=== PATIENT | male | born 1945 | race Caucasian/White ===

== ENCOUNTER 2021-03-22 08:23 | Day surgery (SDC) | payer MEDICARE, BC ==
[~2021-03-22 08:23] MED LIST: Lactated Ringers 1,000 ML IV SCH; Lidocaine 1% 4 ML ONE; Lidocaine 1%/Sod Bicarbonate in NS 8.4% 1 ML Syringe IDERM PRN; Propofol 200 MG/20 ML SDV ONE; Sodium Chloride 0.9% 10 ML Syringe FLUSH PRN; fentaNYL 100 MCG/2 ML SDV ONE
--- NOTE | 2021-03-22 08:30 | PCM.PREANE ---
Preanesthetic Assessment - Procedure Proposed Procedure: EGD and Colonoscopy - Anesthesia/Transfusion/Family Hx Anesthesia History: Prior Anesthesia Without Reaction Family History of Anesthesia Reaction: No Transfusion History: No Prior Transfusion(s) - Review of Systems General: No Symptoms Pulmonary: No Symptoms (NIMO with CPAP/quit smoking: Quit in 1978, quit smokeless tobacco 1980/ETOH: rarely) Cardiovascular: No Symptoms (HTN, Cardiomyopathy, CAD, ICD placed in 2011, elevated lipids/?[place]) Gastrointestinal: No Symptoms (Hypertrophy of prostate) Neurological: No Symptoms Other: Reports: None (Chronic Kidnedy Disease), Diabetes (AM blood sugar:147 @ 0722), Thyroid Problems (Hypothyroid), Sinus Problem (Sinusitis) - Physical Assessment NPO Status Date: 03/21/21 NPO Status Time: 21:45 Vital Signs: HR: 63 Sat: 97% Temp: 97.6 B/P: 107/75 Resp: 20 Height: 1.73 m Weight: 104 kg ASA Class: 3 Mental Status: Alert & Oriented x3 Airway Class: Mallampati = 2 Dentition: Reports: Bridge (bottom/permanant) Thyro-Mental Finger Breadths: 3 Mouth Opening Finger Breadths: 3 ROM/Head Extension: Full Lungs: Clear to Auscultation, Normal Respiratory Effort Cardiovascular: Regular Rate, Regular Rhythm, No Murmurs - Lab Values: All labs reviewed and noted and within acceptable ranges to proceed with scheduled procedure. - Imaging/EKG Impressions: EF: 30% EKG: Ventricular pacemaker: rate 74. - Allergies Allergies/Adverse Reactions: Allergies Allergy/AdvReac Type Severity Reaction Status Date / Time No Known Allergies Allergy Verified 03/21/21 13:51 - Anesthesia Plan Pre-Op Medication Ordered: Beta Gibson Beta Gibson: Metoprolol Med Last Dose Date: 03/22/21 Med Last Dose Time: 07:00 - Acknowledgements Anesthesia Type Planned: MAC Pt an Appropriate Candidate for the Planned Anesthesia: Yes Alternatives and Risks of Anesthesia Discussed w Pt/Guardian: Yes Pt/Guardian Understands and Agrees with Anesthesia Plan: Yes PreAnesthesia Questionnaire HEENT History: Reports: Impaired Vision, Sinusitis, Other (See Below) Other HEENT History: wears glasses, tonsillitis Cardiovascular History: Reports: CAD, High Cholesterol, Hypertension, Other (See Below) Other Cardiovascular History: coronary atherosclerosis, cardiomyopathies, high cholesterol Respiratory History: Reports: Sleep Apnea, Other (See Below) Other Respiratory History: uses cpap Gastrointestinal History: Reports: Other (See Below) Other Gastrointestinal History: umbilical hernia, puncture wound to abdomen, umbilical hernia Genitourinary History: Reports: BPH Other Genitourinary History: disorder of kidney, ureter 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 Hematologic History: Reports: Anemia Immunologic History: Reports: None Oncologic (Cancer) History: Reports: Prostate Dermatologic History: Reports: Other (See Below) Other Dermatologic History: onychia of toe - Past Surgical History Cardiovascular Surgical History: Reports: AICD Respiratory Surgical History: Reports: None Female Surgical History: Reports: None Male Surgical History: Reports: None Endocrine Surgical History: Reports: None Neurological Surgical History: Reports: None Musculoskeletal Surgical History: Reports: Knee Replacement Oncologic Surgical History: Reports: None Dermatological Surgical History: Reports: None - SUBSTANCE USE Tobacco Use Status *Q: Former Tobacco User Days Per Week of Alcohol Use: 1 Number of Drinks Per Day: 2 Total Drinks Per Week: 2 Recreational Drug Use History: No - HOME MEDS Home Medications: Home Meds Aspirin [[place] Aspirin EC] 81 mg PO DAILY 04/27/15 [History] Ezetimibe [Zetia] 10 mg PO QPM 04/27/15 [History] Metoprolol Succinate 50 mg PO DAILY 04/27/15 [History] Multivitamin [Multi-Vitamin Daily] 1 tab PO DAILY 04/27/15 [History] Simvastatin [Zocor] 80 mg PO QPM 04/27/15 [History] Spironolactone [Aldactone] 25 mg PO DAILY 04/27/15 [History] Finasteride [Proscar] 5 mg PO DAILY 03/21/21 [History] Levothyroxine 75 mcg PO DAILY 03/21/21 [History] Omeprazole Magnesium [Prilosec Otc] 20 mg PO DAILY 03/21/21 [History] Tamsulosin [Flomax] 0.4 mg PO BID 03/21/21 [History] metFORMIN [Glucophage] 500 mg PO BID 03/21/21 [History] - CURRENT (IN HOUSE) MEDS Current Meds: Current Medications Lactated Ringer's (Ringers, Lactated) 1,000 mls @ 125 mls/hr IV ASDIRECTED SAMANTHA Stop: 03/22/21 23:00 Lidocaine/Sodium Bicarbonate (Lidocaine 1%/Sod Bicarbonate In Ns 8.4% 1 Ml Syringe) 0.25 ml IDERM ONETIME PRN PRN Reason: Prior to IV Start Stop: 03/22/21 18:00 Sodium Chloride (Sodium Chloride 0.9% 10 Ml Syringe) 10 ml FLUSH ASDIRECTED PRN PRN Reason: Keep Vein Open Stop: 03/22/21 18:00 Discontinued Medications Fentanyl (Fentanyl 100 Mcg/2 Ml Sdv) Confirm Administered Dose 100 mcg .ROUTE .STK-MED ONE Stop: 03/22/21 07:31 Lidocaine HCl (Xylocaine-Mpf 1%) Confirm Administered Dose 4 mls @ as directed .ROUTE .STK-MED ONE Stop: 03/22/21 07:31 Propofol (Propofol 200 Mg/20 Ml Sdv) Confirm Administered Dose 200 mg .ROUTE .STK-MED ONE Stop: 03/22/21 07:31
[2021-03-22] MEDS ORDERED: ePHEDrine 50 MG/ML SDV ONE (09:14)
[2021-03-22] MEDS ORDERED: Propofol 200 MG/20 ML SDV ONE ×3 (09:15→10:56)
[2021-03-22] MEDS ORDERED: Lactated Ringers 1,000 ML ONE (10:10)
--- NOTE | 2021-03-22 11:19 | PCM.OPNOTE ---
- General Post-Op/Procedure Note Date of Surgery/Procedure: 03/22/21 Operative Procedure(s): EGD and incomplete colonoscopy Findings: 1. Esophageal polyps 2. Irregular Z-line with salmon colored mucosa extending into the distal esophagus 3. Esophagitis 4. Gastritis 5. Gastric ulcers 6. Gastric polyps 7. Duodenitis 8. Diverticulosis 9. Transverse colon polyp Pre Op Diagnosis: positive FIT Post-Op Diagnosis: same Anesthesia Technique: MAC Primary Surgeon: Dawn Reyes Anesthesia Provider: Pat Mcmahon Pathology: 1. esophageal polyp biopsy 2. Z-line biopsies 3. Gastric polyps x2 4. Antrum biopsies 5. Duodenal biopsies 6. Transverse colon polyp Fluid Replacement, Intraop: 1,000 EBL in mLs: 0 Complications: none apparent Condition: Good
--- NOTE | 2021-03-22 11:20 | PCM.PRNOTE ---
- Free Text/Narrative Note: Operative Report Date of Procedure: March 22, 2021 Pre Op Diagnosis: Positive FIT Post-Op Diagnosis: same Operative Procedures: 1. EGD with biopsy 2. Incomplete Colonoscopy to the ascending colon Primary Surgeon: Dawn Reyes MD Anesthesia Provider: Pat Mcmahon CRNA Anesthesia Technique: MAC IV Fluid Replacement, Intraop: 1000cc crystalloid Output, Urine Amount: 0cc EBL in mLs: 0cc Findings: 1. Esophageal polyps 2. Irregular Z-line with salmon colored mucosa extending into the distal esoph sinai 3. Esophagitis 4. Gastritis 5. Gastric ulcers 6. Gastric polyps 7. Duodenitis 8. Diverticulosis 9. Transverse colon polyp Specimens: 1. esophageal polyp biopsy 2. Z-line biopsies 3. Gastric polyps x2 4. Antrum biopsies 5. Duodenal biopsies 6. Transverse colon polyp Drain/Tubes: None Indication: The patient is a 75-year-old gentleman who presented to the clinic with findings of a positive FIT as well as some anemia. The patient was consented for a diagnostic EGD and colonoscopy. Risks of bleeding, and perforation were discussed, and the patient agreed to the risks and wished to proceed. Description of the procedure: The patient was taken back to the endoscopy suite, and placed in the left lateral decubitus position. A bite block was placed. The patient was sedated with MAC anesthesia. The Olympus video endoscope was inserted into the oropharynx and guided under direct vision into the esophagus, stomach, and duodenum. The duodenal bulb and second portion of the duodenum were remarkable for diffuse polyposis and nodular mucosa consistent with peptic duodenitis. This was biopsied with a cold biopsy forceps. The gastric antrum was inspected and cold biopsy forceps were used to take tissue samples for H. pylori. There were 3 shallow ulcerations in the gastric antrum with adherent blood clot. Two polyps 2mm in size and semipedunculated were removed from the gastric antrum with a cold biopsy forceps. The scope was withdrawn to the stomach and retroflexed. There was no increased fluid, food or secretions in the upper gastrointestinal tract. The scope was withdrawn to the esophagus. A this point Barretts esophagus changes were noted as well as one stripe of erythema consistent with esophagitis. The Z-line was biopsied in four quadrants with a cold biopsy forceps. The endoscope was then withdrawn while further inspecting the esophagus. Many flat 2-3mm polyps were noted, and these were biopsied with a cold biopsy forceps. Next, anorectal examination was performed. No lesions, masses or hemorrhoids were noted externally or on palpation. The scope was placed into the rectum and advanced to ascending colon with considerable difficulty. There was significant tortuosity of the colon, and the scope was withdrawn and re-inserted as well as abdominal pressure applied and change in patient position to supine in order to facilitate the endoscope, but the cecum could not be reached. The ileocecal valve was well visualized and the appendiceal orifice identified. At this point, the scope was slowly withdrawn, paying attention to the mucosa. The patient had good bowel prep. Diffuse and mild diverticulosis was noted. A 4mm flat polyp was removed from the transverse colon with a jumbo cold biopsy forceps. In the rectum, scope was retroflexed and some hemorrhoidal tissue was noted. The scope was placed back in the lumen and excess air was aspirated. The scope was removed. The patient tolerated the procedure very well. Complications: None apparent Condition: The patient was transported to PACU in stable condition. Dawn Reyes MD General Surgery
--- NOTE | 2021-03-22 11:28 | PCM48HPAN ---
Post Anesthesia Note - EVALUATION WITHIN 48HRS OF ANESTHETIC Vital Signs in Normal Range: Yes Patient Participated in Evaluation: Yes Respiratory Function Stable: Yes Airway Patent: Yes Cardiovascular Function Stable: Yes Hydration Status Stable: Yes Pain Control Satisfactory: Yes Nausea and Vomiting Control Satisfactory: Yes Mental Status Recovered: Yes Vital Signs: Last Vital Signs Temp 98.7 03/22/21 1116 Pulse 64 03/22/21 1116 Resp 12 03/22/21 1116 BP 136/81 03/22/21 1116 Pulse Ox 95% 03/22/21 1116
[2021-03-22 12:06] VITALS: BP 117/75; PULSE 61
== END 2021-03-22 12:18 | disposition home or self-care (01) ==
LOC: JD.SDS 08:23
PROVIDERS: ATTEND Surgery
DX: D12.3 Benign neoplasm of transverse colon (principal); K20.0 Eosinophilic esophagitis; K31.89 Other diseases of stomach and duodenum; K22.8 Other specified diseases of esophagus; K25.9 Gastric ulcer, unspecified as acute or chronic, without hemorrhage or perforation; K31.7 Polyp of stomach and duodenum; K29.90 Gastroduodenitis, unspecified, without bleeding; K57.30 Diverticulosis of large intestine without perforation or abscess without bleeding; D64.9 Anemia, unspecified; G47.33 Obstructive sleep apnea (adult) (pediatric); E11.9 Type 2 diabetes mellitus without complications; E78.00 Pure hypercholesterolemia, unspecified; E03.9 Hypothyroidism, unspecified; Z79.890 Hormone replacement therapy; Z98.890 Other specified postprocedural states; Z79.899 Other long term (current) drug therapy; Z87.891 Personal history of nicotine dependence
CPT/HCPCS: 43239; 45380; J2704; J3010; J7120; 00813; 88305; 99100

== ENCOUNTER 2021-06-07 10:12 | Day surgery (SDC) | payer MEDICARE, BC ==
--- NOTE | 2021-06-07 08:06 | PCM.PREANE ---
Preanesthetic Assessment - Procedure Proposed Procedure: EGD - Anesthesia/Transfusion/Family Hx Anesthesia History: Prior Anesthesia Without Reaction Family History of Anesthesia Reaction: No Transfusion History: No Prior Transfusion(s) Intubation History: Unknown - Review of Systems General: No Symptoms Pulmonary: No Symptoms (Former smoker: quit in 1978, quit smokeless tobacco 1980/ETOH: rarely NIMO/CPAP: at night) Cardiovascular: No Symptoms (Elevated lipids, cardiomyopathy: EF 30-47%, HTN, CAD, ICD placed in 2011/ ?[place]) Gastrointestinal: No Symptoms (GERD controlled) Neurological: No Symptoms Other: Reports: None (Hypertrophy of prostate, CKD), Easy Bruising, Diabetes (am blood sugar: 125 @0815), Thyroid Problems (Hypothyroid), Sinus Problem (Sinusitis) - Physical Assessment NPO Status Date: 06/06/21 NPO Status Time: 20:30 Vital Signs: HR: 63 Sat: 99% Temp: 97 B/P: 145/85 Resp: 16 Height: 1.73 m Weight: 107 kg ASA Class: 3 Mental Status: Alert & Oriented x3 Airway Class: Mallampati = 2 Dentition: Reports: Normal Dentition, Bridge (lower), Caries Thyro-Mental Finger Breadths: 3 Mouth Opening Finger Breadths: 3 ROM/Head Extension: Full Lungs: Clear to Auscultation, Normal Respiratory Effort Cardiovascular: Regular Rate, Regular Rhythm, No Murmurs - Lab Values: All labs reviewed and noted and within acceptable ranges to proceed with scheduled procedure. - Imaging/EKG Impressions: EKG: 07/08: cardiac stress test: EF=47%, tiny area of reversible defect at the apex - Allergies Allergies/Adverse Reactions: Allergies Allergy/AdvReac Type Severity Reaction Status Date / Time No Known Allergies Allergy Verified 06/06/21 11:57 - Anesthesia Plan Pre-Op Medication Ordered: Beta Gibson Beta Gibson: Metoprolol Med Last Dose Date: 06/07/21 Med Last Dose Time: 08:30 - Acknowledgements Anesthesia Type Planned: MAC Pt an Appropriate Candidate for the Planned Anesthesia: Yes Alternatives and Risks of Anesthesia Discussed w Pt/Guardian: Yes Pt/Guardian Understands and Agrees with Anesthesia Plan: Yes PreAnesthesia Questionnaire HEENT History: Reports: Impaired Vision, Sinusitis, Other (See Below) Other HEENT History: wears glasses, tonsillitis Cardiovascular History: Reports: CAD, Cardiomyopathy, High Cholesterol, Hypertension, Other (See Below) Other Cardiovascular History: coronary atherosclerosis, cardiomyopathies, high cholesterol Respiratory History: Reports: Sleep Apnea, Other (See Below) Other Respiratory History: uses cpap Gastrointestinal History: Reports: Other (See Below) Other Gastrointestinal History: umbilical hernia, puncture wound to abdomen, colon neoplasm Genitourinary History: Reports: BPH Other Genitourinary History: vasectomy 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 Hematologic History: Reports: Anemia Immunologic History: Reports: None Oncologic (Cancer) History: Reports: Prostate Dermatologic History: Reports: Other (See Below) Other Dermatologic History: onychia of toe - Infectious Disease History Infectious Disease History: Reports: None - Past Surgical History Cardiovascular Surgical History: Reports: AICD Respiratory Surgical History: Reports: None GI Surgical History: Reports: Colonoscopy, EGD Female Surgical History: Reports: None Male Surgical History: Reports: Vasectomy Endocrine Surgical History: Reports: None Neurological Surgical History: Reports: None Musculoskeletal Surgical History: Reports: Knee Replacement Oncologic Surgical History: Reports: None Dermatological Surgical History: Reports: None - SUBSTANCE USE Tobacco Use Status *Q: Former Tobacco User Recreational Drug Use History: No - HOME MEDS Home Medications: Home Meds Aspirin [[place] Aspirin EC] 81 mg PO DAILY 04/27/15 [History] Ezetimibe [Zetia] 10 mg PO QPM 04/27/15 [History] Metoprolol Succinate 50 mg PO DAILY 04/27/15 [History] Multivitamin [Multi-Vitamin Daily] 1 tab PO DAILY 04/27/15 [History] Simvastatin [Zocor] 80 mg PO QPM 04/27/15 [History] Spironolactone [Aldactone] 25 mg PO DAILY 04/27/15 [History] Finasteride [Proscar] 5 mg PO DAILY 03/21/21 [History] Levothyroxine 75 mcg PO DAILY 03/21/21 [History] Tamsulosin [Flomax] 0.4 mg PO BID 03/21/21 [History] metFORMIN [Glucophage] 500 mg PO BID 03/21/21 [History] Omeprazole 20 mg PO BID #90 tablet. 03/22/21 [Rx] Sucralfate [Carafate] 1 gm PO Q6HR #120 tab 03/22/21 [Rx] Losartan [Cozaar] 50 mg PO DAILY 06/06/21 [History] - CURRENT (IN HOUSE) MEDS Current Meds: Current Medications Lactated Ringer's (Ringers, Lactated) 1,000 mls @ 125 mls/hr IV ASDIRECTED SAMANTHA Stop: 06/07/21 23:00 Lidocaine/Sodium Bicarbonate (Lidocaine 1%/Sod Bicarbonate In Ns 8.4% 1 Ml Syringe) 0.25 ml IDERM ONETIME PRN PRN Reason: Prior to IV Start Stop: 06/07/21 18:00 Sodium Chloride (Sodium Chloride 0.9% 10 Ml Syringe) 10 ml FLUSH ASDIRECTED PRN PRN Reason: Keep Vein Open Stop: 06/07/21 18:00
[~2021-06-07 10:12] MED LIST changes: -Lidocaine 1% 4 ML ONE; -Propofol 200 MG/20 ML SDV ONE; -fentaNYL 100 MCG/2 ML SDV ONE
[2021-06-07] MEDS ORDERED: Propofol 200 MG/20 ML SDV ONE (11:38)
[2021-06-07] MEDS ORDERED: fentaNYL 100 MCG/2 ML SDV ONE (11:38)
--- NOTE | 2021-06-07 12:38 | PCM.OPNOTE ---
- General Post-Op/Procedure Note Date of Surgery/Procedure: 06/07/21 Operative Procedure(s): EGD Findings: 1. Bravo's esophagus changes 2. Duodenitis and polyposis Pre Op Diagnosis: History of gastric ulcers Post-Op Diagnosis: same Anesthesia Technique: LATISHA Primary Surgeon: Dawn Reyes Anesthesia Provider: Pat Mcmahon Pathology: 1. Duodenal biopsies 2. Gastric antrum biopsies 3. Bravo's biopsies in distal esophagus Fluid Replacement, Intraop: 400 Output, Urine Amount: 0 EBL in mLs: 0 Complications: none apparent Condition: Good
--- NOTE | 2021-06-07 12:39 | PCM.PRNOTE ---
- Free Text/Narrative Note: Operative Report Date of procedure: June 07, 2021 Preoperative diagnosis: history of gastric ulcer Postoperative diagnosis: same Surgeon: Dawn Reyes M.D. Procedure: EGD Anesthesia: MAC Cardiology Teacher: Pat Mcmahon CRNA IV fluids: 400 mL Estimated blood loss: 0 mL Findings: 1. Bravo's esophagus changes 2. Duodenitis and polyposis Specimens: 1. Duodenal biopsies 2. Gastric antrum biopsies 3. Bravo's biopsies in distal esophagus Indication: The patient is a 75-year-old gentleman who presented with a history of gastric ulcers. He has been compliant with acid reduction. The patient was consented for an EGD. Risk of bleeding and perforation were discussed. The patient's consent was obtained. Description of the procedure: The patient was taken to the endoscopy suite and placed on hemodynamic monitoring. The nurse contracts intern induced MAC anesthesia. A bite block was placed. The patient was positioned in the left lateral decubitus position. A timeout was performed. The endoscope was gently placed into the mouth to the back of the pharynx and introduced into the esophagus. The scope was gently advanced under direct visualization down to the level of the lower esophageal sphincter. The stomach was then entered. Normal rugal folds were noted. The scope was advanced into the antrum. The pylorus was then entered and the first and second portion of the duodenum was inspected. The duodenal mucosa was friable with patches of polypoid erythematous mucosa. This was biopsied with a cold biopsy forceps. There were no ulcerations in the duodenum. The scope was withdrawn to the antrum and this was biopsied with cold biopsy forceps. The scope was then retroflexed in the cardia and fundus were investigated. There is no evidence of any hiatal hernia. No other abnormalities were noted. The scope was then withdrawn while inspecting the esophagus. The distal esopha balwinder had two tongues of salmon-colored mucosa extending to the distal esophagus. This was consistent with Bravo's esophagus changes and was biopsied four quadrants with a cold biopsy forceps. There was no esophagitis. The procedure was terminated. the patient tolerated the procedure well without any evidence of complications. Dawn Reyes MD General Surgery
--- NOTE | 2021-06-07 12:49 | PCM48HPAN ---
Post Anesthesia Note - EVALUATION WITHIN 48HRS OF ANESTHETIC Vital Signs in Normal Range: Yes Patient Participated in Evaluation: Yes Respiratory Function Stable: Yes Airway Patent: Yes Cardiovascular Function Stable: Yes Hydration Status Stable: Yes Pain Control Satisfactory: Yes Nausea and Vomiting Control Satisfactory: Yes Mental Status Recovered: Yes Vital Signs: Last Vital Signs Temp 36.1 C 06/07/21 11:00 Pulse 63 06/07/21 11:00 Resp 16 06/07/21 11:00 BP 145/85 H 06/07/21 11:00 Pulse Ox 99 06/07/21 11:00
[2021-06-07 15:15] VITALS: PULSE 59
[2021-06-07 15:16] VITALS: BP 112/72
== END 2021-06-07 14:08 | disposition home or self-care (01) ==
LOC: JD.SDS 10:12
PROVIDERS: ATTEND Surgery
DX: K31.89 Other diseases of stomach and duodenum (principal); K20.90 Esophagitis, unspecified without bleeding; K22.70 Barrett's esophagus without dysplasia; I10 Essential (primary) hypertension; E78.5 Hyperlipidemia, unspecified; G47.30 Sleep apnea, unspecified; I25.10 Atherosclerotic heart disease of native coronary artery without angina pectoris; E11.9 Type 2 diabetes mellitus without complications; K21.9 Gastro-esophageal reflux disease without esophagitis; E78.00 Pure hypercholesterolemia, unspecified; E03.9 Hypothyroidism, unspecified; Z87.891 Personal history of nicotine dependence; Z79.82 Long term (current) use of aspirin; K29.80 Duodenitis without bleeding; Z98.890 Other specified postprocedural states; Z79.899 Other long term (current) drug therapy
CPT/HCPCS: 43239; 88305; J2704; J3010; J7120; 00731; 99100

== ENCOUNTER 2022-07-18 08:51 | Day surgery (SDC) | payer MEDICARE, BC ==
[2022-07-18] MEDS ORDERED: Sodium Chloride 0.9% 10 ML Syringe FLUSH SCH (09:00)
[2022-07-18] MEDS ORDERED: Ondansetron 4 MG/2 ML SDV IVPUSH PRN (09:27)
[2022-07-18] MEDS ORDERED: Lidocaine 1% 2 ML ONE ×2 (09:37)
[2022-07-18] MEDS ORDERED: Propofol 200 MG/20 ML SDV ONE ×3 (09:38→10:12)
[2022-07-18 11:25] VITALS: BP 129/80; PULSE 59
== END 2022-07-18 11:30 | disposition home or self-care (01) ==
LOC: JD.SDS 08:51
PROVIDERS: ATTEND Surgery
DX: Z12.11 Encounter for screening for malignant neoplasm of colon (principal); E11.9 Type 2 diabetes mellitus without complications; I10 Essential (primary) hypertension; E03.9 Hypothyroidism, unspecified; I25.10 Atherosclerotic heart disease of native coronary artery without angina pectoris; I42.9 Cardiomyopathy, unspecified; E78.00 Pure hypercholesterolemia, unspecified; N40.0 Benign prostatic hyperplasia without lower urinary tract symptoms; M19.90 Unspecified osteoarthritis, unspecified site; Z86.010 Personal history of colon polyps; Z98.890 Other specified postprocedural states; Z96.659 Presence of unspecified artificial knee joint; Z79.899 Other long term (current) drug therapy; Z79.84 Long term (current) use of oral hypoglycemic drugs; Z79.890 Hormone replacement therapy; Z87.891 Personal history of nicotine dependence; Z87.19 Personal history of other diseases of the digestive system
CPT/HCPCS: G0105; J2704; J7120; 00813; 99100

== ENCOUNTER 2025-03-25 10:40 | Emergency (ER) | payer BC, MEDICARE, OTHER ==
[2025-03-25 11:05] VITALS: BP 100/70; PULSE 90
[2025-03-25] MEDS ORDERED: Sodium Chloride 0.9% 10 ML Syringe FLUSH PRN (11:13)
[2025-03-25 11:31] LABS: BASOPHILS ABSOLUTE AUTO 0.1 K/mm3 (0.0-0.2); BASOPHILS PERCENT AUTO 0.4 % (0.0-1.0); EOSINOPHILS ABSOLUTE AUTO 0.0 K/mm3 (0.0-0.4); EOSINOPHILS PERCENT AUTO 0.2 % (0.0-6.0); IMMATURE GRAN ABSOLUTE AUTO 0.11 K/mm3 (0.00-0.05); IMMATURE GRAN PERCENT AUTO 0.6 % (0.0-0.4); LYMPHOCYTES ABSOLUTE AUTO 0.5 K/mm3 (1.0-4.8); LYMPHOCYTES PERCENT AUTO 2.3 % (24.0-44.0); MEAN PLATELET VOLUME 11.5 fl (9.4-12.4); MONOCYTES ABSOLUTE AUTO 1.2 K/mm3 (0.0-0.8); MONOCYTES PERCENT AUTO 5.9 % (0.0-8.0); NEUTROPHILS ABSOLUTE AUTO 18.2 K/mm3 (1.8-7.7); NEUTROPHILS PERCENT AUTO 90.6 % (41.0-71.0); NRBC ABSOLUTE 0.00 (0.00-0.02); NRBC PERCENT 0.0 % (0.0-0.2); PLATELET COUNT,PLT 242 K/mm3 (150-400); RED BLOOD CELL COUNT 4.33 M/mm3 (4.52-5.90); WHITE BLOOD CELL COUNT,WBC 20.00 K/mm3 (3.9-11.3)
[2025-03-25 11:53] LABS: A/G RATIO 0.9 (1-2); ALANINE AMINOTRANSFERASE,ALT 22.0 U/L (16-63); ASPARTATE AMNIOTRANSFERASE,AST 19.0 U/L (15-37); BILIRUBIN TOTAL 0.7 mg/dL (0.2-1.0); BLOOD UREA NITROGEN,BUN 37.0 mg/dL (7-18); CARBON DIOXIDE,CO2 26.0 mEq/L (21-32); CHLORIDE,CL 102.0 mEq/L (98-107); CREATININE 1.8 mg/dL (0.7-1.3); EST CRCL DRUG DOSING (CG) 33.8 mL/min; ESTIMATED GFR 38.0 mL/min (>60); GLUCOSE RANDOM 161.0 mg/dL (70-99); POTASSIUM,K 4.4 mEq/L (3.5-5.1); PROTEIN TOTAL,TP 7.5 g/dl (6.4-8.2); SODIUM,NA 138.0 mEq/L (136-145); TROPONIN I HIGH SENSITIVITY 13.0 pg/mL (<=76); TSH 1.228 uIU/mL (0.358-3.74)
[2025-03-25] MEDS: Amoxicillin/Clavulanate K 875-125 MG Tab PO ONE (14:14)
== END 2025-03-25 14:21 | disposition home or self-care (01) ==
LOC: JD.ED 10:40
DX: J18.9 Pneumonia, unspecified organism (principal); I25.10 Atherosclerotic heart disease of native coronary artery without angina pectoris; I10 Essential (primary) hypertension; E78.00 Pure hypercholesterolemia, unspecified; M19.90 Unspecified osteoarthritis, unspecified site; E11.9 Type 2 diabetes mellitus without complications; E03.9 Hypothyroidism, unspecified; Z88.8 Allergy status to other drugs, medicaments and biological substances; Z79.82 Long term (current) use of aspirin; Z79.84 Long term (current) use of oral hypoglycemic drugs; Z79.890 Hormone replacement therapy; Z79.899 Other long term (current) drug therapy
CPT/HCPCS: 36415; 71045; 71250; 80053; 83735; 84443; 84484; 85025; 86140; 87428; 93005; 96360; 96361; 99285; A9270; J7030; 93010; 99283